=== PATIENT | female | born 1940 | race Caucasian/White ===

== ENCOUNTER → 2016-11-14 | Outpatient (CLI) | payer MEDICARE ==
[~2016-11-14] MED LIST: ABAT125S IV; AMLO10TA2 PO; ASCO500T29 PO; ATOR20TA9 PO; CA C1TAB63 PO; CHOL-29 PO; DENO60DI IM; FOLI0.4T2 PO; HYDR-3341 PO; HYDR200T PO; LEFL20TA16 PO; LOSA100T6 PO; MAGN300C PO; METH2.5T PO; MULT-717 PO; OMEP20CA9 PO; OMNIPAQUE 350 MG/ML, 100ML BOTTLE ONE; POTA10TA11 PO; PRED2.5T PO; WARF3TAB7 PO
== END | disposition home or self-care (01) ==
LOC: RAD 11:59
PROVIDERS: ATTEND Neurological Surgery
DX: K44.9 Diaphragmatic hernia without obstruction or gangrene (principal); E11.621 Type 2 diabetes mellitus with foot ulcer; J43.9 Emphysema, unspecified; R91.8 Other nonspecific abnormal finding of lung field; N20.0 Calculus of kidney; N28.1 Cyst of kidney, acquired; E27.9 Disorder of adrenal gland, unspecified
CPT/HCPCS: 74177; Q9967

== ENCOUNTER 2016-11-20 13:54 | Emergency (ER) | payer MEDICARE ==
[~2016-11-20] VITALS: Ht 167.6 cm; Wt 60.0 kg
[~2016-11-20 13:54] MED LIST changes: -OMNIPAQUE 350 MG/ML, 100ML BOTTLE ONE
[2016-11-20 13:56] VITALS: BP 128/81
[2016-11-20] MEDS ORDERED: PINK LADY ENEMA 1,000 ML PR ONE (15:30)
[2016-11-20] MEDS ORDERED: METHYLNALTREXONE 12 MG/0.6 ML SQ ONE (15:30)
== END 2016-11-20 17:40 | disposition home or self-care (01) ==
LOC: ED 17:30
DX: K59.00 Constipation, unspecified (principal); I10 Essential (primary) hypertension; J44.9 Chronic obstructive pulmonary disease, unspecified; M06.9 Rheumatoid arthritis, unspecified
CPT/HCPCS: 74000; 96372

== ENCOUNTER 2016-12-24 10:20 | Emergency (ER) | payer MEDICARE ==
[~2016-12-24] VITALS: Ht 167.6 cm; Wt 61.4 kg
[2016-12-24] MEDS ORDERED: HYDR-3240 PO (11:04)
[2016-12-24 12:01] VITALS: BP 124/74
== END 2016-12-24 12:04 | disposition home or self-care (01) ==
LOC: ED 11:54
DX: M54.5 Low back pain (principal); M48.54XA Collapsed vertebra, not elsewhere classified, thoracic region, initial encounter for fracture; I10 Essential (primary) hypertension; J44.9 Chronic obstructive pulmonary disease, unspecified
CPT/HCPCS: 99282

== ENCOUNTER 2017-01-13 19:05 | Inpatient (IN) | payer MEDICARE, OTHER ==
[~2017-01-13] VITALS: Ht 167.6 cm; Wt 64.2 kg
[~2017-01-13 19:05] MED LIST changes: +HYDR-3240 PO
[2017-01-13] MEDS ORDERED: ONDANSETRON 2MG/ML, 2ML IVPush ONE (19:30)
[2017-01-13] MEDS ORDERED: SODIUM CHLORIDE FLUSH 10ML SYR IVF ONE (19:30)
[2017-01-13] MEDS ORDERED: MORPHINE SULFATE 4 MG/ML, 1ML IVPush PRN (19:30)
[2017-01-13] MEDS ORDERED: SODIUM CHLORIDE 0.9% 1,000ML IVBOLUS ONE (19:30)
[2017-01-13] MEDS ORDERED: ONDANSETRON 2MG/ML, 2ML ONE ×2 (19:39→21:54)
[2017-01-13] MEDS ORDERED: MORPHINE SULFATE 4 MG/ML, 1ML ONE ×2 (19:39→21:54)
[2017-01-13 19:54] LABS: BLOOD UREA NITROGEN 14 mg/dL (7-18)
[2017-01-13 21:03] LABS: PATH.CAST-FLAG NOT PRESENT; SPERM-FLAG NOT PRESENT; SRC-FLAG NOT PRESENT; XTAL-FLAG NOT PRESENT; YLC-FLAG NOT PRESENT
[2017-01-13] MEDS ORDERED: ENOX80SY4 SQ (21:39)
[2017-01-13] MEDS ORDERED: OMNIPAQUE 350 MG/ML, 100ML BOTTLE ONE (21:45)
[2017-01-13] MEDS ORDERED: MORPHINE SULFATE 4 MG/ML, 1ML IVPush ONE (22:00)
[2017-01-14 01:13] VITALS: BP 109/64
[2017-01-14] MEDS ORDERED: TRAZODONE 50MG TABLET PO PRN (02:00)
[2017-01-14] MEDS ORDERED: ENOXAPARIN 40 MG/0.4 ML SQ SCH (02:00)
[2017-01-14] MEDS ORDERED: BISACODYL 10 MG SUPP PR PRN (02:00)
[2017-01-14] MEDS ORDERED: LABETALOL 5MG/ML, 20ML IVPush PRN (02:00)
[2017-01-14] MEDS ORDERED: POLYETHYLENE GLYCOL 17 GM PACKET PO PRN (02:00)
[2017-01-14] MEDS ORDERED: DOCUSATE 100 MG CAPSULE PO PRN (02:00)
[2017-01-14] MEDS ORDERED: ACETAMINOPHEN 325 MG TABLET PO PRN (02:00)
[2017-01-14] MEDS: NICOTINE 14MG/24 HR PATCH.TD24 TD SCH (05:05)
[2017-01-14] MEDS ORDERED: METHYLNALTREXONE 12 MG/0.6 ML SQ SCH (05:30)
[2017-01-14] MEDS ORDERED: SIMETHICONE DROPS 40 MG/0.6 ML BOTTLE PO PRN (05:30)
[2017-01-14 06:33] VITALS: BP 113/67
[2017-01-14] MEDS: HYDROcodone/APAP 5/325 TABLET PO PRN ×2 (07:45→16:00)
[2017-01-14] MEDS: AMLODIPINE 2.5 MG TABLET PO SCH (07:46)
[2017-01-14] MEDS: HYDROXYCHLOROQUINE 200 MG TABLET PO SCH ×2 (07:46→20:59)
[2017-01-14] MEDS: CALCIUM/VITAMIN D3 250-125 TABLET PO SCH ×2 (07:46→20:59)
[2017-01-14] MEDS: MAGNESIUM OXIDE 400 MG TABLET PO SCH ×2 (07:46→20:59)
[2017-01-14] MEDS: LOSARTAN 50MG TABLET PO SCH (07:46)
[2017-01-14] MEDS: OMEPRAZOLE 20 MG CAPSULE.DR PO SCH (07:47)
[2017-01-14] MEDS: CHOLECALCIFEROL 1,000 UNIT TABLET PO SCH (07:47)
[2017-01-14] MEDS: POTASSIUM CHLORIDE 10 MEQ TABLET.ER PO SCH ×2 (10:04→20:59)
[2017-01-14] MEDS ORDERED: ALBUTEROL SULFATE 2.5 MG/3 ML NPPB PRN (11:30)
[2017-01-14 12:30] VITALS: BP 94/60
[2017-01-14] MEDS: BISACODYL 10 MG SUPP PR SCH (13:54)
[2017-01-14] MEDS: SIMETHICONE DROPS 40 MG/0.6 ML BOTTLE PO SCH ×2 (13:55→18:15)
[2017-01-14] MEDS ORDERED: WARFARIN 3 MG TABLET PO-COUM ONE (18:00)
[2017-01-14] MEDS ORDERED: WARFARIN 3 MG TABLET PO-COUM SCH (18:00)
[2017-01-14 20:07] VITALS: BP 95/62
[2017-01-14] MEDS ORDERED: ATORVASTATIN 20 MG TABLET PO SCH (21:00)
[2017-01-15 00:54] VITALS: BP 118/75
[2017-01-15] MEDS: HYDROcodone/APAP 5/325 TABLET PO PRN (01:40)
[2017-01-15 05:47] LABS: BLOOD UREA NITROGEN 9 mg/dL (7-18)
[2017-01-15 07:49] VITALS: BP 112/73
[2017-01-15] MEDS: SIMETHICONE DROPS 40 MG/0.6 ML BOTTLE PO SCH ×3 (08:00→18:00)
[2017-01-15] MEDS: NICOTINE 14MG/24 HR PATCH.TD24 TD SCH (08:58)
[2017-01-15] MEDS: POTASSIUM CHLORIDE 10 MEQ TABLET.ER PO SCH (08:59)
[2017-01-15] MEDS: CHOLECALCIFEROL 1,000 UNIT TABLET PO SCH (09:00)
[2017-01-15] MEDS: MAGNESIUM OXIDE 400 MG TABLET PO SCH (09:00)
[2017-01-15] MEDS: CALCIUM/VITAMIN D3 250-125 TABLET PO SCH (09:00)
[2017-01-15] MEDS: AMLODIPINE 2.5 MG TABLET PO SCH (09:00)
[2017-01-15] MEDS: OMEPRAZOLE 20 MG CAPSULE.DR PO SCH (09:00)
[2017-01-15] MEDS: BISACODYL 10 MG SUPP PR SCH (09:00)
[2017-01-15] MEDS: HYDROXYCHLOROQUINE 200 MG TABLET PO SCH (09:00)
[2017-01-15] MEDS: LOSARTAN 50MG TABLET PO SCH (09:01)
[2017-01-15 14:30] VITALS: BP 116/73
[2017-01-15] MEDS ORDERED: SIME40DR3 PO (15:15)
[2017-01-15] MEDS ORDERED: POLY17PO5 PO (15:15)
[2017-01-15] MEDS ORDERED: SENN1TAB7 PO (15:15)
[2017-01-15] MEDS ORDERED: BISA10SU65 PR (15:15)
[2017-01-15] MEDS ORDERED: WARFARIN 2 MG TABLET PO-COUM SCH (18:00)
== END 2017-01-15 19:06 | disposition home or self-care (01) | DRG 392 ==
LOC: ED 21:16 → EDIP 22:25 → INTOOBSV 22:25 → 3NE 01-14 → OBSVTOIN 01-14 18:45
PROVIDERS: ADMIT Internal Medicine; ATTEND Internal Medicine
DX: K59.00 Constipation, unspecified (principal); E87.1 Hypo-osmolality and hyponatremia; M48.54XA Collapsed vertebra, not elsewhere classified, thoracic region, initial encounter for fracture; R14.0 Abdominal distension (gaseous); E78.5 Hyperlipidemia, unspecified; F17.210 Nicotine dependence, cigarettes, uncomplicated; G89.29 Other chronic pain; I10 Essential (primary) hypertension; J44.9 Chronic obstructive pulmonary disease, unspecified; K44.9 Diaphragmatic hernia without obstruction or gangrene; K21.9 Gastro-esophageal reflux disease without esophagitis; M06.9 Rheumatoid arthritis, unspecified; M81.8 Other osteoporosis without current pathological fracture; T38.0X5A Adverse effect of glucocorticoids and synthetic analogues, initial encounter; M81.0 Age-related osteoporosis without current pathological fracture; T40.605A Adverse effect of unspecified narcotics, initial encounter; E86.1 Hypovolemia; Z71.6 Tobacco abuse counseling; Z79.52 Long term (current) use of systemic steroids; Y92.89 Other specified places as the place of occurrence of the external cause; Z86.711 Personal history of pulmonary embolism; Z90.49 Acquired absence of other specified parts of digestive tract; Z79.01 Long term (current) use of anticoagulants; Z79.899 Other long term (current) drug therapy; Z82.61 Family history of arthritis; K22.8 Other specified diseases of esophagus
CPT/HCPCS: 36415; 74177; 74220; 76770; 80048; 81001; 82040; 83605; 84439; 84443; 85025; 85610; 87086; 94640; 96374; 96375; G0378; J2405; J7512; J7613; Q9967; J7030

== ENCOUNTER 2017-02-01 16:11 | Emergency (ER) | payer MEDICARE, OTHER ==
[~2017-02-01] VITALS: Ht 167.6 cm; Wt 50.0 kg
[~2017-02-01 16:11] MED LIST changes: +BISA10SU65 PR; +ENOX80SY4 SQ; +POLY17PO5 PO; +SENN1TAB7 PO; +SIME40DR3 PO
[2017-02-01] MEDS ORDERED: SODIUM CHLORIDE FLUSH 10ML SYR IVF ONE (17:00)
[2017-02-01 17:30] LABS: BLOOD UREA NITROGEN 9 mg/dL (7-18)
[2017-02-01 17:37] LABS: IS PT STATUS REG ER OR PRE ER? YES
[2017-02-01 19:12] VITALS: BP 116/74
== END 2017-02-01 19:20 | disposition home or self-care (01) ==
LOC: ED 19:11
DX: M79.89 Other specified soft tissue disorders (principal); I10 Essential (primary) hypertension; M54.9 Dorsalgia, unspecified; G89.29 Other chronic pain; J44.9 Chronic obstructive pulmonary disease, unspecified; Z79.01 Long term (current) use of anticoagulants; M19.90 Unspecified osteoarthritis, unspecified site
CPT/HCPCS: 36415; 71010; 80048; 82040; 83880; 84484; 85025; 85610; 93005; 99285

== ENCOUNTER → 2017-02-12 | Outpatient (CLI) | payer MEDICARE, OTHER | END | disposition home or self-care (01) | LOC: RAD 07:57 | PROVIDERS: ATTEND Registered Nurse | DX: S22.080A Wedge compression fracture of T11-T12 vertebra, initial encounter for closed fracture (principal); S32.010A Wedge compression fracture of first lumbar vertebra, initial encounter for closed fracture; S32.029A Unspecified fracture of second lumbar vertebra, initial encounter for closed fracture; S32.039A Unspecified fracture of third lumbar vertebra, initial encounter for closed fracture; S32.049A Unspecified fracture of fourth lumbar vertebra, initial encounter for closed fracture; G95.29 Other cord compression; M54.16 Radiculopathy, lumbar region; X58.XXXA Exposure to other specified factors, initial encounter; Y93.89 Activity, other specified; Y92.89 Other specified places as the place of occurrence of the external cause; Y99.8 Other external cause status | CPT/HCPCS: 72072; 72110; 72131; 72146; 72148 ==

== ENCOUNTER 2017-02-28 15:33 | Inpatient (IN) | payer MEDICARE, OTHER ==
[~2017-02-28] VITALS: Ht 167.6 cm; Wt 56.4 kg
[~2017-02-28 15:33] MED LIST changes: +BIOT5CAP PO; +FLUC200T4 PO; +TAMS0.4C2 PO
[2017-02-28] MEDS ORDERED: SODIUM CHLORIDE 0.9% 1,000 ML IV ONE (15:56)
[2017-02-28] MEDS ORDERED: ONDANSETRON 2MG/ML, 2ML IVPush ONE (16:00)
[2017-02-28] MEDS ORDERED: SODIUM CHLORIDE 0.9% 1,000ML IVBOLUS ONE (16:00)
[2017-02-28] MEDS ORDERED: MORPHINE SULFATE 4 MG/ML, 1ML ONE ×2 (16:19→19:23)
[2017-02-28] MEDS ORDERED: ONDANSETRON 2MG/ML, 2ML ONE (16:19)
[2017-02-28 16:32] LABS: BLOOD UREA NITROGEN 18 mg/dL (7-18)
[2017-02-28 16:35] LABS: ASPARTATE AMINO TRANSFERASE 300 U/L (15-37)
[2017-02-28] MEDS: MORPHINE SULFATE 4 MG/ML, 1ML IVPush PRN ×2 (16:56→19:28)
[2017-02-28] MEDS ORDERED: CETI10TA24 PO (17:21)
[2017-02-28] MEDS ORDERED: OMNIPAQUE 350 MG/ML, 100ML BOTTLE ONE (17:45)
[2017-02-28] MEDS ORDERED: CEFUROXIME 1.5 GM in SODIUM CHLORIDE 0.9% 50 ML IV ONE (19:00)
[2017-02-28] MEDS ORDERED: HEPARIN 5,000 UNITS/ML, 1ML SQ SCH (21:30)
[2017-02-28] MEDS: CEFUROXIME 1.5 GM in SODIUM CHLORIDE 0.9% 50 ML IV SCH (22:18)
[2017-02-28] MEDS: NICOTINE 14MG/24 HR PATCH.TD24 TD SCH (22:19)
[2017-02-28] MEDS ORDERED: ALBUTEROL SULFATE 2.5 MG/3 ML NPPB PRN (22:30)
[2017-02-28 23:00] VITALS: BP 101/55
[2017-03-01] VITALS (10 sets, daily range): BP systolic 101–130; BP diastolic 62–81
[2017-03-01 05:24] LABS: BLOOD UREA NITROGEN 14 mg/dL (7-18)
[2017-03-01] MEDS: CEFUROXIME 1.5 GM in SODIUM CHLORIDE 0.9% 50 ML IV SCH ×3 (06:02→21:55)
[2017-03-01] MEDS: morphine SULFATE 10 MG/ML, 1ML IVPush PRN ×2 (08:34→21:22)
[2017-03-01] MEDS: LOSARTAN 50MG TABLET PO SCH (08:37)
[2017-03-01] MEDS: AMLODIPINE 2.5 MG TABLET PO SCH (08:37)
[2017-03-01] MEDS: CETIRIZINE 10 MG TABLET PO SCH (10:23)
[2017-03-01] MEDS: SENNA/DOCUSATE TABLET PO SCH (10:23)
[2017-03-01] MEDS: CHOLECALCIFEROL 1,000 UNIT TABLET PO SCH (10:23)
[2017-03-01] MEDS: HYDROXYCHLOROQUINE 200 MG TABLET PO SCH ×2 (10:35→20:11)
[2017-03-01] MEDS: POTASSIUM CHLORIDE 10 MEQ TABLET.ER PO SCH ×2 (10:35→20:11)
[2017-03-01] MEDS: SODIUM CHLORIDE 0.9% 1,000 ML IV SCH (13:03)
[2017-03-01] MEDS: HYDROcodone/APAP 5/325 TABLET PO PRN (18:48)
[2017-03-01] MEDS: NICOTINE 14MG/24 HR PATCH.TD24 TD SCH (20:11)
[2017-03-01] MEDS: POLYETHYLENE GLYCOL 17 GM PACKET PO SCH (20:12)
[2017-03-01] MEDS: ATORVASTATIN 20 MG TABLET PO SCH (20:12)
[2017-03-02] MEDS: SODIUM CHLORIDE 0.9% 1,000 ML IV SCH ×3 (00:08→18:08)
[2017-03-02 02:14] VITALS: BP 139/80
[2017-03-02 05:36] LABS: ASPARTATE AMINO TRANSFERASE 92 U/L (15-37); BLOOD UREA NITROGEN 7 mg/dL (7-18)
[2017-03-02] MEDS: CEFUROXIME 1.5 GM in SODIUM CHLORIDE 0.9% 50 ML IV SCH ×3 (05:59→21:53)
[2017-03-02 07:19] VITALS: BP 120/77
[2017-03-02] MEDS: POLYETHYLENE GLYCOL 17 GM PACKET PO SCH (08:36)
[2017-03-02] MEDS: SENNA/DOCUSATE TABLET PO SCH (08:36)
[2017-03-02] MEDS: morphine SULFATE 10 MG/ML, 1ML IVPush PRN ×2 (08:41→19:41)
[2017-03-02] MEDS: POTASSIUM CHLORIDE 10 MEQ TABLET.ER PO SCH ×2 (08:47→19:41)
[2017-03-02] MEDS: CETIRIZINE 10 MG TABLET PO SCH (08:47)
[2017-03-02] MEDS: AMLODIPINE 2.5 MG TABLET PO SCH (08:47)
[2017-03-02] MEDS: CHOLECALCIFEROL 1,000 UNIT TABLET PO SCH (08:48)
[2017-03-02] MEDS: LOSARTAN 50MG TABLET PO SCH (08:48)
[2017-03-02] MEDS: HYDROXYCHLOROQUINE 200 MG TABLET PO SCH ×2 (08:49→19:41)
[2017-03-02 12:22] VITALS: BP 110/69
[2017-03-02] MEDS: ACETYLCYSTEINE 10%, 4ML PO SCH (12:28)
[2017-03-02] MEDS: CALCITONIN NASAL 200 UNITS/0.09ML, 3.7ML NAS SCH (13:55)
[2017-03-02] MEDS: ATORVASTATIN 20 MG TABLET PO SCH (19:41)
[2017-03-02] MEDS: NICOTINE 14MG/24 HR PATCH.TD24 TD SCH (19:41)
[2017-03-02 20:26] VITALS: BP 109/69
[2017-03-03 01:05] VITALS: BP 106/65
[2017-03-03] MEDS: morphine SULFATE 10 MG/ML, 1ML IVPush PRN ×4 (03:24→23:10)
[2017-03-03] MEDS: SODIUM CHLORIDE 0.9% 1,000 ML IV SCH ×2 (03:24→14:03)
[2017-03-03] MEDS: CEFUROXIME 1.5 GM in SODIUM CHLORIDE 0.9% 50 ML IV SCH ×3 (05:42→21:44)
[2017-03-03 06:22] LABS: ASPARTATE AMINO TRANSFERASE 62 U/L (15-37); BLOOD UREA NITROGEN 4 mg/dL (7-18)
[2017-03-03 08:41] VITALS: BP 108/68
[2017-03-03] MEDS: LOSARTAN 50MG TABLET PO SCH (09:36)
[2017-03-03] MEDS: AMLODIPINE 2.5 MG TABLET PO SCH (09:36)
[2017-03-03] MEDS: ACETYLCYSTEINE 10%, 4ML PO SCH (10:00)
[2017-03-03] MEDS: SENNA/DOCUSATE TABLET PO SCH (10:00)
[2017-03-03] MEDS: CETIRIZINE 10 MG TABLET PO SCH (10:01)
[2017-03-03] MEDS: HYDROXYCHLOROQUINE 200 MG TABLET PO SCH ×2 (10:01→20:32)
[2017-03-03] MEDS: POLYETHYLENE GLYCOL 17 GM PACKET PO SCH (10:01)
[2017-03-03] MEDS: CALCITONIN NASAL 200 UNITS/0.09ML, 3.7ML NAS SCH (10:01)
[2017-03-03] MEDS: POTASSIUM CHLORIDE 10 MEQ TABLET.ER PO SCH ×2 (10:01→20:32)
[2017-03-03] MEDS: CHOLECALCIFEROL 1,000 UNIT TABLET PO SCH (10:01)
[2017-03-03] MEDS: CALCIUM CARBONATE 500 MG TAB.CHEW PO PRN (10:29)
[2017-03-03 12:43] VITALS: BP 120/76
[2017-03-03 19:38] VITALS: BP 115/72
[2017-03-03] MEDS: NICOTINE 14MG/24 HR PATCH.TD24 TD SCH (20:32)
[2017-03-03] MEDS: ATORVASTATIN 20 MG TABLET PO SCH (20:32)
[2017-03-04 01:31] VITALS: BP 118/76
[2017-03-04] MEDS: SODIUM CHLORIDE 0.9% 1,000 ML IV SCH ×2 (03:51→14:49)
[2017-03-04] MEDS: morphine SULFATE 10 MG/ML, 1ML IVPush PRN ×3 (03:51→23:27)
[2017-03-04] MEDS: CALCIUM CARBONATE 500 MG TAB.CHEW PO PRN ×3 (06:06→18:25)
[2017-03-04] MEDS: CEFUROXIME 1.5 GM in SODIUM CHLORIDE 0.9% 50 ML IV SCH ×3 (06:06→23:27)
[2017-03-04 06:36] LABS: ASPARTATE AMINO TRANSFERASE 45 U/L (15-37); BLOOD UREA NITROGEN 4 mg/dL (7-18)
[2017-03-04] MEDS ORDERED: KETAMINE 10 MG/ML, 20ML ONE (07:46)
[2017-03-04] MEDS ORDERED: FENTANYL PF 100 MCG/2ML ONE (08:09)
[2017-03-04] MEDS ORDERED: LABETALOL 5MG/ML, 20ML IV PRN (08:30)
[2017-03-04] MEDS ORDERED: MEPERIDINE/PF 25MG/0.5ML IVPush PRN (08:30)
[2017-03-04] MEDS ORDERED: FENTANYL PF 100 MCG/2ML IV PRN (08:30)
[2017-03-04] MEDS ORDERED: ALBUTEROL SULFATE 2.5 MG/3 ML NPPB PRN (08:30)
[2017-03-04] MEDS ORDERED: ACETAMINOPHEN 325 MG TABLET PO PRN (08:30)
[2017-03-04] MEDS ORDERED: OXYcodone 5 MG/5 ML ORAL.SOL UDC PO PRN (08:30)
[2017-03-04] MEDS ORDERED: HYDROmorphone 1 MG/ML, 1ML IV PRN (08:30)
[2017-03-04] MEDS ORDERED: ONDANSETRON 2MG/ML, 2ML IVPush PRN (08:30)
[2017-03-04] MEDS ORDERED: PROMETHAZINE 25 MG/ML, 1ML IV PRN (08:30)
[2017-03-04] MEDS ORDERED: hydrALAzine 20 MG/ML, 1ML IV PRN (08:30)
[2017-03-04] MEDS ORDERED: MIDAZOLAM 1 MG/ML, 2ML IV PRN (08:30)
[2017-03-04] MEDS ORDERED: OMNIPAQUE 350 MG/ML, 50 ML BOTTLE ONE (08:38)
[2017-03-04] MEDS: CETIRIZINE 10 MG TABLET PO SCH (09:00)
[2017-03-04] MEDS: POLYETHYLENE GLYCOL 17 GM PACKET PO SCH (09:00)
[2017-03-04] MEDS: AMLODIPINE 2.5 MG TABLET PO SCH (09:00)
[2017-03-04] MEDS: SENNA/DOCUSATE TABLET PO SCH ×2 (09:00→20:49)
[2017-03-04] MEDS: HYDROXYCHLOROQUINE 200 MG TABLET PO SCH ×2 (09:00→20:48)
[2017-03-04] MEDS: CALCITONIN NASAL 200 UNITS/0.09ML, 3.7ML NAS SCH (09:00)
[2017-03-04] MEDS: ACETYLCYSTEINE 10%, 4ML PO SCH (09:00)
[2017-03-04] MEDS: CHOLECALCIFEROL 1,000 UNIT TABLET PO SCH (09:00)
[2017-03-04] MEDS: POTASSIUM CHLORIDE 10 MEQ TABLET.ER PO SCH ×2 (09:00→20:48)
[2017-03-04] MEDS: LOSARTAN 50MG TABLET PO SCH (09:00)
[2017-03-04] MEDS ORDERED: SUCCINYLCHOLINE 20 MG/ML, 10ML ONE (11:00)
[2017-03-04] MEDS ORDERED: DEXAMETHASONE 4 MG/ML, 1ML ONE (11:00)
[2017-03-04] MEDS ORDERED: ROCURONIUM 10 MG/ML ONE (11:00)
[2017-03-04] MEDS ORDERED: ONDANSETRON 2MG/ML, 2ML ONE (11:00)
[2017-03-04] MEDS ORDERED: PROPOFOL 10 MG/ML, 20ML ONE (11:00)
[2017-03-04] MEDS: HYDROcodone/APAP 5/325 TABLET PO PRN (11:44)
[2017-03-04 13:46] VITALS: BP 113/74
[2017-03-04 19:19] VITALS: BP 106/65
[2017-03-04] MEDS ORDERED: ALUMINUM/MAG/SIMETHICONE 30 ML UDC ONE (20:18)
[2017-03-04] MEDS ORDERED: ALUMINUM/MAG/SIMETHICONE 30 ML UDC PO PRN (20:30)
[2017-03-04] MEDS: NICOTINE 14MG/24 HR PATCH.TD24 TD SCH (20:48)
[2017-03-04] MEDS: ATORVASTATIN 20 MG TABLET PO SCH (20:48)
[2017-03-04] MEDS: OMEPRAZOLE 20 MG CAPSULE.DR PO SCH (23:31)
[2017-03-05 02:22] VITALS: BP 104/60
[2017-03-05] MEDS: SODIUM CHLORIDE 0.9% 1,000 ML IV SCH ×2 (04:00→13:53)
[2017-03-05] MEDS: HYDROcodone/APAP 5/325 TABLET PO PRN ×3 (05:41→20:36)
[2017-03-05 05:46] LABS: BLOOD UREA NITROGEN 12 mg/dL (7-18)
[2017-03-05] MEDS: CEFUROXIME 1.5 GM in SODIUM CHLORIDE 0.9% 50 ML IV SCH ×3 (05:47→22:22)
[2017-03-05 05:51] LABS: ASPARTATE AMINO TRANSFERASE 37 U/L (15-37)
[2017-03-05] MEDS: POTASSIUM CHLORIDE 10 MEQ TABLET.ER PO SCH ×2 (07:55→20:34)
[2017-03-05] MEDS: POLYETHYLENE GLYCOL 17 GM PACKET PO SCH ×2 (07:55→20:33)
[2017-03-05] MEDS: CALCITONIN NASAL 200 UNITS/0.09ML, 3.7ML NAS SCH (07:55)
[2017-03-05] MEDS: CETIRIZINE 10 MG TABLET PO SCH (07:56)
[2017-03-05] MEDS: HYDROXYCHLOROQUINE 200 MG TABLET PO SCH ×2 (07:56→20:34)
[2017-03-05] MEDS: AMLODIPINE 2.5 MG TABLET PO SCH (07:57)
[2017-03-05] MEDS: CHOLECALCIFEROL 1,000 UNIT TABLET PO SCH (07:57)
[2017-03-05] MEDS: LOSARTAN 50MG TABLET PO SCH (07:57)
[2017-03-05] MEDS: OMEPRAZOLE 20 MG CAPSULE.DR PO SCH (07:57)
[2017-03-05] MEDS: ACETYLCYSTEINE 10%, 4ML PO SCH (07:57)
[2017-03-05] MEDS: ENOXAPARIN 60 MG/0.6 ML SQ SCH ×2 (10:29→22:27)
[2017-03-05 11:11] VITALS: BP 96/57
[2017-03-05 15:19] VITALS: BP 109/63
[2017-03-05 15:47] VITALS: BP 114/72
[2017-03-05 20:27] VITALS: BP 124/77
[2017-03-05] MEDS: ATORVASTATIN 20 MG TABLET PO SCH (20:34)
[2017-03-05] MEDS: NICOTINE 14MG/24 HR PATCH.TD24 TD SCH (22:25)
[2017-03-05] MEDS ORDERED: METHOTREXATE 2.5 MG TABLET PO SCH (22:30)
[2017-03-06] MEDS: HYDROcodone/APAP 5/325 TABLET PO PRN (00:04)
[2017-03-06] MEDS: SODIUM CHLORIDE 0.9% 1,000 ML IV SCH (00:06)
[2017-03-06 01:57] VITALS: BP 121/72
[2017-03-06] MEDS ORDERED: BISACODYL 10 MG SUPP PR PRN (04:00)
[2017-03-06] MEDS ORDERED: OXYcodone IR 5MG TABLET PO PRN (04:00)
[2017-03-06] MEDS ORDERED: ONDANSETRON 2MG/ML, 2ML IVPush PRN (04:00)
[2017-03-06] MEDS: CEFUROXIME 1.5 GM in SODIUM CHLORIDE 0.9% 50 ML IV SCH (05:41)
[2017-03-06 06:01] LABS: BLOOD UREA NITROGEN 7 mg/dL (7-18)
[2017-03-06 06:04] LABS: ASPARTATE AMINO TRANSFERASE 133 U/L (15-37)
[2017-03-06 06:39] VITALS: BP 115/71
[2017-03-06] MEDS ORDERED: OXYcodone 5 MG/5 ML ORAL.SOL UDC PO PRN (07:30)
[2017-03-06] MEDS: OMEPRAZOLE 20 MG CAPSULE.DR PO SCH (07:52)
[2017-03-06] MEDS: CALCITONIN NASAL 200 UNITS/0.09ML, 3.7ML NAS SCH (07:53)
[2017-03-06] MEDS: POTASSIUM CHLORIDE 10 MEQ TABLET.ER PO SCH ×2 (07:53→20:55)
[2017-03-06] MEDS: LOSARTAN 50MG TABLET PO SCH (07:54)
[2017-03-06] MEDS: HYDROcodone/APAP 10/325 MG TABLET PO PRN ×2 (07:55→20:55)
[2017-03-06] MEDS: POLYETHYLENE GLYCOL 17 GM PACKET PO SCH ×3 (07:55→21:00)
[2017-03-06] MEDS: SENNA/DOCUSATE TABLET PO SCH (07:55)
[2017-03-06] MEDS: CHOLECALCIFEROL 1,000 UNIT TABLET PO SCH (07:55)
[2017-03-06] MEDS: ACETYLCYSTEINE 10%, 4ML PO SCH (07:55)
[2017-03-06] MEDS: AMLODIPINE 2.5 MG TABLET PO SCH (07:55)
[2017-03-06] MEDS: HYDROXYCHLOROQUINE 200 MG TABLET PO SCH ×2 (07:57→20:55)
[2017-03-06] MEDS: CETIRIZINE 10 MG TABLET PO SCH (07:57)
[2017-03-06] MEDS: ENOXAPARIN 60 MG/0.6 ML SQ SCH ×2 (10:32→22:28)
[2017-03-06 15:46] VITALS: BP 118/72
[2017-03-06 18:49] VITALS: BP 126/76
[2017-03-06] MEDS: ATORVASTATIN 20 MG TABLET PO SCH (20:55)
[2017-03-06] MEDS: NICOTINE 14MG/24 HR PATCH.TD24 TD SCH (20:57)
[2017-03-07] MEDS: HYDROcodone/APAP 10/325 MG TABLET PO PRN ×4 (01:47→21:52)
[2017-03-07 02:36] VITALS: BP 127/73
[2017-03-07 06:08] LABS: BLOOD UREA NITROGEN 6 mg/dL (7-18)
[2017-03-07 06:13] LABS: ASPARTATE AMINO TRANSFERASE 81 U/L (15-37)
[2017-03-07] MEDS ORDERED: POTASSIUM CHLORIDE 20 MEQ TAB.ER.PRT PO ONE (06:30)
[2017-03-07 07:07] VITALS: BP 116/73
[2017-03-07] MEDS ORDERED: WARFARIN 5 MG TABLET PO-COUM ONE (09:00)
[2017-03-07 10:16] VITALS: BP 101/64
[2017-03-07] MEDS: SENNA/DOCUSATE TABLET PO SCH (10:17)
[2017-03-07] MEDS: CHOLECALCIFEROL 1,000 UNIT TABLET PO SCH (10:17)
[2017-03-07] MEDS: OMEPRAZOLE 20 MG CAPSULE.DR PO SCH (10:18)
[2017-03-07] MEDS: ACETYLCYSTEINE 10%, 4ML PO SCH (10:18)
[2017-03-07] MEDS: POLYETHYLENE GLYCOL 17 GM PACKET PO SCH ×2 (10:18→20:29)
[2017-03-07] MEDS: CALCITONIN NASAL 200 UNITS/0.09ML, 3.7ML NAS SCH (10:18)
[2017-03-07] MEDS: CETIRIZINE 10 MG TABLET PO SCH (10:18)
[2017-03-07] MEDS: HYDROXYCHLOROQUINE 200 MG TABLET PO SCH ×2 (10:19→20:31)
[2017-03-07] MEDS: LOSARTAN 50MG TABLET PO SCH (10:19)
[2017-03-07] MEDS: AMLODIPINE 2.5 MG TABLET PO SCH (10:19)
[2017-03-07] MEDS: ENOXAPARIN 60 MG/0.6 ML SQ SCH ×2 (10:20→21:52)
[2017-03-07] MEDS: PINK LADY ENEMA 1,000 ML PR SCH (11:51)
[2017-03-07 13:10] VITALS: BP 119/69
[2017-03-07 19:54] VITALS: BP 123/78
[2017-03-07] MEDS: ATORVASTATIN 20 MG TABLET PO SCH (20:29)
[2017-03-07] MEDS: NICOTINE 14MG/24 HR PATCH.TD24 TD SCH (20:31)
[2017-03-08 02:16] VITALS: BP 115/68
[2017-03-08] MEDS: HYDROcodone/APAP 10/325 MG TABLET PO PRN ×2 (04:26→11:31)
[2017-03-08 06:18] LABS: BLOOD UREA NITROGEN 6 mg/dL (7-18)
[2017-03-08 06:22] LABS: ASPARTATE AMINO TRANSFERASE 53 U/L (15-37)
[2017-03-08] MEDS ORDERED: RANI-276 PO (06:53)
[2017-03-08 07:12] VITALS: BP 117/66
[2017-03-08] MEDS: PINK LADY ENEMA 1,000 ML PR SCH (09:00)
[2017-03-08] MEDS: POLYETHYLENE GLYCOL 17 GM PACKET PO SCH (09:21)
[2017-03-08] MEDS: ACETYLCYSTEINE 10%, 4ML PO SCH (09:21)
[2017-03-08] MEDS: CALCITONIN NASAL 200 UNITS/0.09ML, 3.7ML NAS SCH (09:21)
[2017-03-08] MEDS: ENOXAPARIN 60 MG/0.6 ML SQ SCH (09:22)
[2017-03-08] MEDS: CHOLECALCIFEROL 1,000 UNIT TABLET PO SCH (09:24)
[2017-03-08] MEDS: CETIRIZINE 10 MG TABLET PO SCH (09:24)
[2017-03-08] MEDS: AMLODIPINE 2.5 MG TABLET PO SCH (09:25)
[2017-03-08] MEDS: OMEPRAZOLE 20 MG CAPSULE.DR PO SCH (09:25)
[2017-03-08] MEDS: SENNA/DOCUSATE TABLET PO SCH (09:25)
[2017-03-08] MEDS: HYDROXYCHLOROQUINE 200 MG TABLET PO SCH (09:25)
[2017-03-08] MEDS: LOSARTAN 50MG TABLET PO SCH (09:25)
[2017-03-08 13:02] VITALS: BP 98/62
[2017-03-08] MEDS ORDERED: WARFARIN 5 MG TABLET PO-COUM ONE (18:00)
== END 2017-03-08 14:00 | disposition home health service (06) | DRG 871 ==
LOC: ED 15:50 → EDIP 19:04 → 4NOR 19:51
PROVIDERS: ADMIT Family Medicine; ATTEND Family Medicine
PROC: 6A550Z3 Pheresis of Plasma, Single (ICD-10-PCS; 2017-03-01)
PROC: BF141ZZ Fluoroscopy of Gallbladder, Bile Ducts and Pancreatic Ducts using Low Osmolar Contrast (ICD-10-PCS; 2017-03-04)
PROC: 0FC98ZZ Extirpation of Matter from Common Bile Duct, Via Natural or Artificial Opening Endoscopic (ICD-10-PCS; 2017-03-04)
PROC: 0F7C8ZZ Dilation of Ampulla of Vater, Via Natural or Artificial Opening Endoscopic (ICD-10-PCS; principal; 2017-03-04 08:00)
DX: A41.9 Sepsis, unspecified organism (principal); K83.1 Obstruction of bile duct; K85.10 Biliary acute pancreatitis without necrosis or infection; F11.20 Opioid dependence, uncomplicated; M80.88XA Other osteoporosis with current pathological fracture, vertebra(e), initial encounter for fracture; E78.5 Hyperlipidemia, unspecified; Z71.6 Tobacco abuse counseling; F17.210 Nicotine dependence, cigarettes, uncomplicated; G89.29 Other chronic pain; I10 Essential (primary) hypertension; J44.9 Chronic obstructive pulmonary disease, unspecified; K21.9 Gastro-esophageal reflux disease without esophagitis; K59.00 Constipation, unspecified; M06.9 Rheumatoid arthritis, unspecified; R79.1 Abnormal coagulation profile; T38.0X5A Adverse effect of glucocorticoids and synthetic analogues, initial encounter; Z79.01 Long term (current) use of anticoagulants; Z79.52 Long term (current) use of systemic steroids; Z82.5 Family history of asthma and other chronic lower respiratory diseases; Z86.711 Personal history of pulmonary embolism; Z79.899 Other long term (current) drug therapy
CPT/HCPCS: 36415; 71010; 72072; 72110; 74177; 74181; 74328; 76705; 80048; 80053; 81001; 82306; 83605; 83690; 84145; 84443; 85025; 85610; 85730; 86850; 86900; 87040; 87086; 96365; 96375; 96376; J0697; J1100; J1644; J1650; J2405; J2704; J3010; J7512; J7608; J8610; Q9967; C1725; J0330; J2270; J7030; P9017

== ENCOUNTER → 2017-04-21 | Outpatient (CLI) | payer MEDICARE, OTHER ==
[~2017-04-21] MED LIST changes: +ASCO-90 PO; -ASCO500T29 PO; +CETI10TA24 PO; +RANI-276 PO; -SIME40DR3 PO; +SIME40DR7 PO
== END | disposition home or self-care (01) ==
LOC: RAD 15:08
PROVIDERS: ATTEND Neurological Surgery
DX: S22.000A Wedge compression fracture of unspecified thoracic vertebra, initial encounter for closed fracture (principal); M43.8X4 Other specified deforming dorsopathies, thoracic region; X58.XXXA Exposure to other specified factors, initial encounter; Y93.89 Activity, other specified; Y92.89 Other specified places as the place of occurrence of the external cause; Y99.8 Other external cause status
CPT/HCPCS: 72072

== ENCOUNTER → 2017-05-29 | Outpatient (CLI) | payer MEDICARE, OTHER | END | disposition home or self-care (01) | LOC: RAD 13:45 | PROVIDERS: ATTEND Registered Nurse | DX: S32.030A Wedge compression fracture of third lumbar vertebra, initial encounter for closed fracture (principal); S22.080A Wedge compression fracture of T11-T12 vertebra, initial encounter for closed fracture; I70.0 Atherosclerosis of aorta; X58.XXXA Exposure to other specified factors, initial encounter; Y93.89 Activity, other specified; Y92.89 Other specified places as the place of occurrence of the external cause; Y99.8 Other external cause status | CPT/HCPCS: 72072; 72110 ==

== ENCOUNTER → 2017-06-11 | Outpatient (CLI) | payer MEDICARE, OTHER | END | disposition home or self-care (01) | LOC: RAD 13:04 | PROVIDERS: ATTEND Registered Nurse | DX: S22.059A Unspecified fracture of T5-T6 vertebra, initial encounter for closed fracture (principal); S22.089A Unspecified fracture of T11-T12 vertebra, initial encounter for closed fracture; M50.223 Other cervical disc displacement at C6-C7 level; X58.XXXA Exposure to other specified factors, initial encounter; Y93.89 Activity, other specified; Y92.89 Other specified places as the place of occurrence of the external cause; Y99.8 Other external cause status | CPT/HCPCS: 72050; 72128; 72141 ==

== ENCOUNTER → 2017-09-19 | Outpatient (CLI) | payer MEDICARE, OTHER | END | disposition home or self-care (01) | LOC: RAD 16:16 | PROVIDERS: ATTEND Nurse Practitioner Critical Care Medicine | DX: M54.2 Cervicalgia (principal); M48.56XA Collapsed vertebra, not elsewhere classified, lumbar region, initial encounter for fracture; M48.54XA Collapsed vertebra, not elsewhere classified, thoracic region, initial encounter for fracture | CPT/HCPCS: 72040; 72072 ==

== ENCOUNTER 2017-11-29 13:13 | Emergency (ER) | payer MEDICARE, OTHER ==
[~2017-11-29] VITALS: Ht 167.6 cm; Wt 57.0 kg
[~2017-11-29 13:13] MED LIST changes: -HYDR200T PO; +HYDR200T72 PO; +WARF3TAB52 PO; -WARF3TAB7 PO
[2017-11-29 14:20] LABS: BASOPHILS % (AUTO) 0 % (0-1); EOSINOPHILS % (AUTO) 0 % (1-7); LYMPHOCYTES # (AUTO) 1.31 x10^3/uL (1-3.4); LYMPHOCYTES % (AUTO) 18 % (22-44); MD NO; MEAN CORPUSCULAR HEMOGLOBIN 26.4 pg (27.0-34.8); MEAN CORPUSCULAR HGB CONC 32.5 g/dL (32.4-35.8); MEAN CORPUSCULAR VOLUME 81.1 fL (80-100); MEAN PLATELET VOLUME 11.1 fL (7.4-10.4); MONOCYTES # (AUTO) 0.28 x10^3/uL (0.2-0.8); MONOCYTES % (AUTO) 4 % (2-9); NEUTROPHILS # (AUTO) 5.61 x10^3/uL (1.8-6.8); NEUTROPHILS % (AUTO) 78 % (42-75); PLATELET COUNT 218 x10^3/uL (130-400); RED BLOOD COUNT 4.84 x10^6/uL (3.82-5.3); RED CELL DISTRIBUTION WIDTH 18.3 % (9.6-15.2)
[2017-11-29] MEDS ORDERED: OMEP20TA62 PO (14:22)
[2017-11-29] MEDS ORDERED: ORENCIA IVPB (14:22)
[2017-11-29] MEDS ORDERED: GABA300C10 PO (14:22)
[2017-11-29] MEDS ORDERED: SODIUM CHLORIDE FLUSH 10ML SYR IVF ONE (14:30)
[2017-11-29 14:32] LABS: ALBUMIN 3.9 g/dL (3.4-5.0); ANION GAP 9 mmol/L (5-15); CHLORIDE 108 mmol/L (98-107); CREATININE 0.86 mg/dL (0.55-1.02)
[2017-11-29 14:42] LABS: INTERNATIONAL NORMALIZED RATIO 2.11 (0.93-1.1); PROTHROMBIN TIME 21.4 Seconds (9.6-11.5)
[2017-11-29] MEDS ORDERED: OMNIPAQUE 350 MG/ML, 100ML BOTTLE ONE (15:11)
[2017-11-29 16:25] VITALS: BP 119/66
== END 2017-11-29 16:27 | disposition home or self-care (01) ==
LOC: ED 15:58
DX: J44.9 Chronic obstructive pulmonary disease, unspecified (principal); J00 Acute nasopharyngitis [common cold]; I10 Essential (primary) hypertension; Z79.01 Long term (current) use of anticoagulants; Z90.49 Acquired absence of other specified parts of digestive tract
CPT/HCPCS: 36415; 70491; 80048; 82040; 85025; 85610; 99285; Q9967

== ENCOUNTER → 2017-12-31 | Outpatient (CLI) | payer MEDICARE, OTHER ==
[~2017-12-31] MED LIST changes: +GABA300C10 PO; +OMEP20TA62 PO; +ORENCIA IVPB
== END ==
LOC: RAD 09:56
PROVIDERS: ATTEND Registered Nurse
DX: S32.030A Wedge compression fracture of third lumbar vertebra, initial encounter for closed fracture (principal); S32.050A Wedge compression fracture of fifth lumbar vertebra, initial encounter for closed fracture; M47.22 Other spondylosis with radiculopathy, cervical region; M50.21 Other cervical disc displacement, high cervical region; M25.78 Osteophyte, vertebrae; X58.XXXA Exposure to other specified factors, initial encounter; Y93.89 Activity, other specified; Y92.89 Other specified places as the place of occurrence of the external cause; Y99.8 Other external cause status
CPT/HCPCS: 72050; 72110; 72141; 72148; 73523

== ENCOUNTER 2018-07-12 14:20 | Emergency (ER) | payer MEDICARE, OTHER ==
[~2018-07-12] VITALS: Ht 165.1 cm; Wt 48.6 kg
[~2018-07-12 14:20] MED LIST changes: -AMLO10TA2 PO; +AMLO10TA6 PO; -LOSA100T6 PO; +LOSA100T7 PO; -SENN1TAB7 PO; +SENN1TAB8 PO
[2018-07-12] MEDS ORDERED: AMLO5TAB7 PO (16:15)
[2018-07-12] MEDS ORDERED: PRED1TAB PO (16:44)
[2018-07-12] MEDS ORDERED: ASCO500T8 PO (16:46)
[2018-07-12 16:47] VITALS: BP 117/67
== END 2018-07-12 17:04 | disposition home or self-care (01) ==
LOC: ED 16:40
DX: M48.56XA Collapsed vertebra, not elsewhere classified, lumbar region, initial encounter for fracture (principal); J44.9 Chronic obstructive pulmonary disease, unspecified; I10 Essential (primary) hypertension; F17.200 Nicotine dependence, unspecified, uncomplicated; X58.XXXA Exposure to other specified factors, initial encounter; Y93.89 Activity, other specified; Y92.89 Other specified places as the place of occurrence of the external cause; Y99.8 Other external cause status
CPT/HCPCS: 71046; 72072; 72110; 99283

== ENCOUNTER → 2018-07-22 | Outpatient (CLI) | payer MEDICARE, OTHER ==
[~2018-07-22] MED LIST changes: +AMLO-150 PO; +ASCO500T8 PO; +ATOR20TA37 PO; -ATOR20TA9 PO; +PRED1TAB PO; -RANI-276 PO; +RANI-448 PO
== END | disposition home or self-care (01) ==
LOC: CFH 14:08
PROVIDERS: ATTEND Nurse Practitioner Critical Care Medicine
DX: M48.55XA Collapsed vertebra, not elsewhere classified, thoracolumbar region, initial encounter for fracture (principal); M40.204 Unspecified kyphosis, thoracic region
CPT/HCPCS: 72146

== ENCOUNTER 2018-08-16 15:28 | Emergency (ER) | payer MEDICARE, OTHER ==
[~2018-08-16] VITALS: Ht 162.6 cm; Wt 49.6 kg
[2018-08-16 15:31] VITALS: BP 156/79
[2018-08-16 15:44] LABS: BASOPHILS # (AUTO) 0.01 x10^3/uL (0-0.1); BASOPHILS % (AUTO) 0 % (0-1); EOSINOPHILS # (AUTO) 0.07 x10^3/uL (0-0.4); EOSINOPHILS % (AUTO) 1 % (1-7); LYMPHOCYTES # (AUTO) 0.74 x10^3/uL (1-3.4); LYMPHOCYTES % (AUTO) 12 % (22-44); MD NO; MEAN CORPUSCULAR HEMOGLOBIN 24.9 pg (27.0-34.8); MEAN CORPUSCULAR HGB CONC 32.1 g/dL (32.4-35.8); MEAN CORPUSCULAR VOLUME 77.7 fL (80-100); MEAN PLATELET VOLUME 9.5 fL (7.4-10.4); MONOCYTES # (AUTO) 0.05 x10^3/uL (0.2-0.8); MONOCYTES % (AUTO) 1 % (2-9); NEUTROPHILS # (AUTO) 5.11 x10^3/uL (1.8-6.8); NEUTROPHILS % (AUTO) 86 % (42-75); PLATELET COUNT 340 x10^3/uL (130-400); RED BLOOD COUNT 4.16 x10^6/uL (3.82-5.3); RED CELL DISTRIBUTION WIDTH 19.5 % (9.6-15.2)
[2018-08-16 15:57] LABS: ALANINE AMINOTRANSFERASE 15 U/L (12-78); ANION GAP 8 mmol/L (5-15); CALCIUM 8.3 mg/dL (8.5-10.1); CHLORIDE 105 mmol/L (98-107)
[2018-08-16 15:59] LABS: ALKALINE PHOSPHATASE 63 U/L (45-117); BILIRUBIN,TOTAL 0.4 mg/dL (0.2-1.0); TOTAL PROTEIN 6.4 g/dL (6.4-8.2)
[2018-08-16] MEDS ORDERED: SODIUM CHLORIDE FLUSH 10ML SYR IVF ONE (16:00)
--- NOTE | 2018-08-16 16:20 | NUR ---
PT TO RM FROM LOBBY VIA W/C. STANDS AND DRESSES WITH OWN POWER.
--- NOTE | 2018-08-16 16:52 | NUR ---
PT REPORTS SHE HAS BEEN TAKING LAXATIVES EVERYDAY. BM TODAY BUT STILL FEELS BLOATED.
[2018-08-16 17:05] LABS: CULTURE INDICATED? YES; MICROSCOPIC INDICATED
--- NOTE | 2018-08-16 17:31 | NUR ---
PT BACK FROM CT AT THIS TIME.
[2018-08-16] MEDS ORDERED: OMNIPAQUE 350 MG/ML, 100ML BOTTLE ONE (18:29)
[2018-08-16] MEDS ORDERED: PINK LADY ENEMA 490 ML BOTTLE PR ONE (19:00)
--- NOTE | 2018-08-16 20:07 | NUR ---
[facility] ENEMA ADMIISTERED. PT HELD FLUID X ~10 MIN, EXPELLED FLUID ONLY, NO SOLID STOOL. [facility] ENEMA ADMINISTERED. PT HELD FLUID X ~10 MIN. BROWN LIQUID STOOL AND GAS ONLY. NO SOLID STOOL, PT REPORTS SHE STILL FEELS BLOATED. ALERTED.
--- NOTE | 2018-08-16 20:43 | NUR ---
PT IS READY FOR D/C HOME. MD CEDILLO
== END 2018-08-16 20:53 | disposition home or self-care (01) ==
LOC: ED 17:20
DX: K59.00 Constipation, unspecified (principal); R10.84 Generalized abdominal pain; I10 Essential (primary) hypertension; J44.9 Chronic obstructive pulmonary disease, unspecified; M06.9 Rheumatoid arthritis, unspecified; F17.200 Nicotine dependence, unspecified, uncomplicated; Z90.89 Acquired absence of other organs
CPT/HCPCS: 36415; 51702; 74177; 80053; 81001; 83690; 85025; 87077; 87086; 99284; Q9967

== ENCOUNTER 2018-08-25 07:23 | Emergency (ER) | payer MEDICARE, OTHER ==
[~2018-08-25] VITALS: Ht 165.1 cm; Wt 50.2 kg
[~2018-08-25 07:23] MED LIST changes: -AMLO10TA6 PO; +AMLO10TA8 PO; +LOSA100T14 PO; -LOSA100T7 PO
--- NOTE | 2018-08-25 08:08 | NUR ---
DIRECTOR OF SPEECH PATHOLOGY: TO ROOM FROM LOBBY, VIA W/C.
--- NOTE | 2018-08-25 08:18 | NUR ---
PT CHANGED INTO GOWN, RESPONDS APPROP TO STAFF, COMFORT MEASURES PROVIDED, AT BS, CALL LIGHT WITHIN REACH. CARDIAC, NIBP & SPO2 MONITORS IN PLACE. PA AT BS.
[2018-08-25 08:55] LABS: BASOPHILS % (AUTO) 0 % (0-1); EOSINOPHILS # (AUTO) 0.01 x10^3/uL (0-0.4); EOSINOPHILS % (AUTO) 0 % (1-7); LYMPHOCYTES % (AUTO) 9 % (22-44); MD NO; MEAN CORPUSCULAR HGB CONC 31.3 g/dL (32.4-35.8); MEAN CORPUSCULAR VOLUME 76.8 fL (80-100); MEAN PLATELET VOLUME 9.2 fL (7.4-10.4); MONOCYTES % (AUTO) 7 % (2-9); NEUTROPHILS # (AUTO) 10.65 x10^3/uL (1.8-6.8); NEUTROPHILS % (AUTO) 84 % (42-75); PLATELET COUNT 303 x10^3/uL (130-400); RED BLOOD COUNT 3.98 x10^6/uL (3.82-5.3); RED CELL DISTRIBUTION WIDTH 20.2 % (9.6-15.2)
--- NOTE | 2018-08-25 08:55 | NUR ---
PT. IS A & O X 4 WITH C/O SORE THROAT, SHOULDER AND ARM PAIN. PT. STATES SHE RECENTLY STARTED CIPRO FOR A BLADDER INFECTION. PT.'S CMS CHECKS ARE INTACT WITH PULSES +2 THROUGHOUT. PT.'S LUNGS ARE CTA. MM ARE PINK AND MOIST WITH PULSES +2 THROUGHOUT. PT. IS RESTING WITH THE HOB ELEVATED GREATER THAN 30 DEGREES. PT. WAS GIVEN A BLANKET FOR WARMTH. THE CALL LIGHT IS IN PLACE.
[2018-08-25 09:03] LABS: INTERNATIONAL NORMALIZED RATIO 2.15 (0.93-1.1); PROTHROMBIN TIME 22.1 Seconds (9.6-11.5)
[2018-08-25 09:05] LABS: ALANINE AMINOTRANSFERASE 16 U/L (12-78); ANION GAP 8 mmol/L (5-15); CHLORIDE 106 mmol/L (98-107)
[2018-08-25 09:08] LABS: ALKALINE PHOSPHATASE 53 U/L (45-117); BILIRUBIN,TOTAL 0.5 mg/dL (0.2-1.0); TOTAL PROTEIN 6.2 g/dL (6.4-8.2)
[2018-08-25 09:53] LABS: MICROSCOPIC AUTO
--- NOTE | 2018-08-25 10:00 | NUR ---
PT. IS RESTING WITHOUT CONCERNS.
[2018-08-25 10:01] LABS: CULTURE INDICATED? NO
--- NOTE | 2018-08-25 10:24 | NUR ---
REPORT RECEIVED FROM VICKEY BARR. ASSUMED CARE OF PT. PT CURRENTLY RESTING ON GURNEY WITH MIKEY REZA. AT BEDSIDE. PT AO X 4. SKIN PWD. RESP EVEN AND EQAUL. PT AWARE THAT WE ARE WAITING FOR LAB/IMAGING RESULTS. CALL LIGHT WITHIN REACH. WILL CONT TO MONITOR PT.
[2018-08-25] MEDS ORDERED: HYDROcodone/APAP 5/325 TABLET PO ONE (10:30)
[2018-08-25] MEDS ORDERED: HYDROcodone/APAP 5/325 TABLET ONE (10:31)
--- NOTE | 2018-08-25 10:44 | NUR ---
PT MEDICATED ORDERED FOR 3/10 PAIN. PT REPORTS PAIN IS WORSE WITH MOVEMENT. PT TO CT SCAN VIA [employer] AT THIS TIME.
--- NOTE | 2018-08-25 11:30 | NUR ---
PT CURRENTLY RESTING ON GURNEY. NAD NOTED. SKIN PWD. RESP EVEN AND EQAUL. PT AWARE WE ARE WAITING FOR DC. PT DENIES PAIN/NEEDS. AT BEDSIDE. WILL CONT TO MONITOR PT.
[2018-08-25 11:43] VITALS: BP 110/68
== END 2018-08-25 11:58 | disposition home or self-care (01) ==
LOC: ED 09:24
DX: M06.9 Rheumatoid arthritis, unspecified (principal); R10.0 Acute abdomen; D64.9 Anemia, unspecified; I10 Essential (primary) hypertension; J44.9 Chronic obstructive pulmonary disease, unspecified
CPT/HCPCS: 36415; 74176; 80053; 81001; 85025; 85610; 99284

== ENCOUNTER 2018-09-28 14:25 | Outpatient (CLI) | payer MEDICARE, OTHER | END 2018-09-28 23:59 | disposition home or self-care (01) | LOC: RAD 14:25 | PROVIDERS: ATTEND Registered Nurse | DX: M48.54XD Collapsed vertebra, not elsewhere classified, thoracic region, subsequent encounter for fracture with routine healing (principal) | CPT/HCPCS: 72146 ==

== ENCOUNTER 2019-08-04 13:22 | Emergency (ER) | payer MEDICARE, OTHER ==
[~2019-08-04] VITALS: Ht 165.1 cm; Wt 54.9 kg
[~2019-08-04 13:22] MED LIST changes: -PRED1TAB PO; +PRED1TAB19 PO; +SENN-177 PO; -SENN1TAB8 PO
[2019-08-04 13:45] VITALS: BP 148/97
--- NOTE | 2019-08-04 14:08 | NUR ---
FIRST CONTACT WITH PT. PT STATES "MY BACK IS HURTING MORE. I MIGHT HAVE ANOTHER FRACTURE. THE PAIN STARTED YESTERDAY AFTERNOON AND THIS MORNING IT WAS PRETTY PAINFUL." NO C/O LOSS OF BOWEL/BLADDER. NO C/O TRAUMA PT'S AOX4. RESPS EVEN AND UNLABORED.
[2019-08-04] MEDS ORDERED: KETOROLAC 30 MG/1 ML ONE (14:10)
[2019-08-04] MEDS ORDERED: DIAZEPAM 5 MG TABLET ONE (14:10)
--- NOTE | 2019-08-04 14:13 | NUR ---
pt medicated per emar. pt tolerated well.
[2019-08-04] MEDS ORDERED: KETOROLAC 30 MG/1 ML IM ONE (14:30)
[2019-08-04] MEDS ORDERED: DIAZEPAM 5 MG TABLET PO ONE (14:30)
--- NOTE | 2019-08-04 15:37 | NUR ---
Patient given discharge instructions and they have confirmed that they understand the instructions. Patient ambulatory with steady gait.
== END 2019-08-04 15:38 | disposition home or self-care (01) ==
LOC: ED 15:30
DX: S29.012A Strain of muscle and tendon of back wall of thorax, initial encounter (principal); I10 Essential (primary) hypertension; J44.9 Chronic obstructive pulmonary disease, unspecified; F17.200 Nicotine dependence, unspecified, uncomplicated; Z90.89 Acquired absence of other organs; X58.XXXA Exposure to other specified factors, initial encounter; Y93.89 Activity, other specified; Y92.89 Other specified places as the place of occurrence of the external cause; Y99.8 Other external cause status
CPT/HCPCS: 71046; 72072; 93005; 96372; 99283; J1885